=== PATIENT | male | born 1990 | race Caucasian/White ===

== ENCOUNTER 2016-11-07 23:30 | Emergency (ER) | payer MEDICAID ==
[2016-11-07 23:44] VITALS: BP 139/95; BMI 26.3
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
== END 2016-11-08 02:30 | disposition left against medical advice (07) ==
LOC: ER 23:30
DX: S81.801A Unspecified open wound, right lower leg, initial encounter (principal); S81.802A Unspecified open wound, left lower leg, initial encounter; W34.00XA Accidental discharge from unspecified firearms or gun, initial encounter; Y92.9 Unspecified place or not applicable
CPT/HCPCS: 73590; 99283

== ENCOUNTER 2017-01-02 16:49 | Emergency (ER) | payer OTHER, MEDICAID ==
[2017-01-02 16:54] VITALS: BP 108/64; BMI 26.3
[2017-01-02] MEDS ORDERED: TORADOL 60 MG VIAL IM ONE (17:29)
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
[2017-01-02] MEDS ORDERED: TORADOL 60 MG VIAL ONE (17:35)
[2017-01-02 17:48] LABS: BASOPHILS # (AUTO) 0.1 X10^3/uL (0.0-0.1); BASOPHILS % (AUTO) 0.9 % (0.2-1.0); EOSINOPHILS # (AUTO) 0.5 x10^3/uL (0.0-0.2); EOSINOPHILS % (AUTO) 6.2 % (0.9-2.9); HEMATOCRIT 42.1 % (42.0-54.0); HEMOGLOBIN 14.7 g/dL (13.5-18.0); LYMPHOCYTES # (AUTO) 1.8 X10^3/uL (1.3-2.9); LYMPHOCYTES % (AUTO) 21.4 % (21.0-51.0); MEAN CORPUSCULAR HEMOGLOBIN 31.3 pg (27.0-34.0); MEAN CORPUSCULAR HGB CONC 34.9 g/dL (33.0-35.0); MEAN CORPUSCULAR VOLUME 89.9 fL (80.0-100.0); MEAN PLATELET VOLUME 9.3 fL (7.4-11.0); MONOCYTES # (AUTO) 0.8 x10^3/uL (0.3-0.8); MONOCYTES % (AUTO) 10.1 % (0.0-13.0); NEUTROPHILS # (AUTO) 5.2 x10^3/uL (2.2-4.8); NEUTROPHILS % (AUTO) 61.4 % (42.0-75.0); PLATELET COUNT 199 X10^3/uL (150.0-450.0); RED BLOOD COUNT 4.68 X10^6/uL (4.7-6.0); RED CELL DISTRIBUTION WIDTH 14.1 % (11.6-16.5); WHITE BLOOD COUNT 8.4 X10^3/uL (3.6-10.0)
[2017-01-02 18:09] LABS: ALANINE AMINOTRANSFERASE 32 Units/L (12-78); ALBUMIN 3.3 g/dL (3.4-5.0); ALKALINE PHOSPHATASE 72 Units/L (46-116); BLOOD UREA NITROGEN 13 mg/dL (7-18); CALCIUM 8.5 mg/dL (8.5-10.1); CARBON DIOXIDE 32.4 mmol/L (21-32); CHLORIDE 105 mmol/L (98-107); COR CA(FOR HYPOALB) 9.1 mg/dL (8.5-10.1); CREATINE KINASE MB < 1.0 ng/mL (0-4.0); CREATININE 1.16 mg/dL (0.70-1.30); GLUCOSE 88 mg/dL (65-99); SODIUM 141 mmol/L (136-145); TOTAL PROTEIN 7.1 g/dL (6.4-8.2); eGFR BLACK RACES > 60 (>60); eGFR NON BLACK RACES > 60 (>60)
[2017-01-02 18:11] LABS: ASPARTATE AMINO TRANSFERASE 19 Units/L (15-37)
--- NOTE | 2017-01-02 20:32 | RAD ---
AP Chest Indication: Chest wall pain Comparison: None available Findings: The trachea is midline. The cardiac silhouette is borderline enlarged. The lungs are clear without focal infiltrate or effusion. The bony thorax is unremarkable. IMPRESSION: 1. Borderline cardiomegaly without acute cardiopulmonary abnormality. Reported By:
== END 2017-01-02 18:23 | disposition left against medical advice (07) ==
LOC: ER 17:05
DX: R07.89 Other chest pain (principal)
CPT/HCPCS: 36415; 71010; 80053; 82553; 85025; 96372; 99282; J1885

== ENCOUNTER 2017-07-13 13:07 | Emergency (ER) | payer OTHER, MEDICAID ==
[2017-07-13 13:13] VITALS: BP 139/84; BMI 29.2
--- NOTE | 2017-07-13 13:35 | DR.GENAD ---
HPI - PCP Primary Care Physician: LUIS - Complaint/Symptoms Chief Complaint Doctors Comments: Patient states that his lower lip swells when he eats strawberries. He works at a [employer] and [employer]. When he eats strawberries sometimes his lower lip will swell. He denies wheezing of shortness of breath during this time. He also admits to having a cough, nausea and vomiting. He denies fever. Chief Complaint:: FLU LIKE SYMPTOMS. C/O BOTTOM LIP SWELLING WHEN EATING CERTAIN FOOD - Source History Provided: Patient - Mode of Arrival Mode of Arrival: Ambulatory - Timing Onset of Chief Complaint: 07/07/17 PMH - PMH Past Medical History: Yes Past Medical History: Hypertension Past Surgical History: No - Family History History of Family Medical Conditions: Yes Family Medical History: Cancer, Heart Failure - Social History Does patient currently use any type of tobacco product: Yes Have you used tobacco products in the last 12 months: Yes Type of Tobacco Use: Cigarettes How many years tobacco product used: 4 Does any household member use tobacco: Yes Alcohol Use: None Do you use any recreational Drugs:: No Lives With: Family Lives Where: Home - infectious screening In the last 2 months have you had wt loss of >10#?: NO Have you had fever, night sweats or hemotysis?: No Have you traveled outside the country in the last 6 months?: No Isolation: Standard ROS - Review of Systems Eyes: No Symptoms Reported ENTM: No Symptoms Reported Respiratoy: No Symptoms Reported Cardiovascular: No Symptoms Reported Gastrointestinal/Abdominal: No Symptoms Reported Genitourinary: No Symptoms Reported Neurological: No Symptoms Reported Musculoskeletal: No Symptoms Reported Integumentary: No Symptoms Reported Hematologic/Lymphatic: No Symptoms Reported Endocrine: No Symptoms Reported Psychiatric: No Symptoms Reported All Other Systems: Reviewed and Negative PE - Vital Signs Vitals: Temperature 98.9 F Pulse Rate 100 Respiratory Rate 22 Blood Pressure 139/84 O2 Sat by Pulse Oximetry 100 - General Limitations: No Limitations General Appearance: Alert, In No Apparent Distress - Head Head Exam: Normal Inspection, Atraumatic - Eyes Eye exam: Normal Appearance, PERRL, EOMI - ENT ENT Exam: Normal Exam External Ear Exam: Normal External Inspection TM/Canal Exam: Bilateral Normal Nose Exam: Normal Nose Exam Mouth Exam: Normal Inspection Throat Exam: Normal Inspection - Neck Neck Exam: Normal Inspection, Full ROM - Chest Chest Inspection: Normal Inspection - Respiratory Respiratory Exam: Normal Lung Sounds Bilat Respiratory Exam: Bilateral Clear to Auscultation - Cardiovascular Cardiovascular Exam: Regular Rate, Normal Rhythm - Abdominal Exam Abdominal Exam: Normal Inspection, Normal Bowel Sounds Abdominal Tenderness: negative: RUQ, RLQ, LUQ, LLQ, Epigastrium, Suprapubic, Diffuse, Mild, Moderate, Severe, Other - Extremities Extremities Exam: Normal Inspection, Full ROM - Back Back Exam: Normal Inspection - Neurologic Neurological Exam: Alert, Oriented X3, CN II-XII Intact - Psychiatric Psychiatric Exam: Normal Affect - Skin Skin Exam: Warm, Dry, Intact Course - Education/Counseling Education/Counseling: Education Educated On: Treatment, Diagnosis - Diagnosis Discharge Problem: possible strawberry allergy URI (upper respiratory infection) Qualifiers: URI type: unspecified viral URI Qualified Code(s): J06.9 - Acute upper respiratory infection, unspecified - Discharge Plan Condition: Stable - Follow ups/Referrals Follow ups/Referrals: Faye Mcgrath [Primary Care Provider] - 3 days - Instructions
== END 2017-07-13 13:50 | disposition home or self-care (01) ==
LOC: ER 13:18
DX: J06.9 Acute upper respiratory infection, unspecified (principal)
CPT/HCPCS: 99281; 99282

== ENCOUNTER 2022-04-15 16:17 | Inpatient (IN) ==
[2022-04-15] MEDS ORDERED: ZOFRAN INJ 4 MG VIAL ONE (16:21)
[2022-04-15] MEDS ORDERED: NS 1,000 ML IV 1,000 ML IV ONE (16:25)
--- NOTE | 2022-04-15 16:25 | DR.GENAD ---
HPI Time Seen Time Seen by Provider: 04/15/22 16:23 Complaint/Symptoms Chief Complaint Doctors Comments: 31 y/o male brought in by EMS. Family found the pt unresponsive. Has a h/o drug abuse. They administered nasal narcan, no effect. EMS was called, they gave IV narcan, 4 mg. + became arousable. Pt told them he had a recent break-up, injected two "eight balls" of meth, trying to kill himself. Pt currently somnolent, but arousable. + nauseous. No vomiting yet. Nurses notes reviewed Nurses Notes Review: Yes Source History Provided: Patient and EMS Mode of Arrival Mode of Arrival: EMS PMH PMH Past Medical History: Anxiety, Depression and Hypertension Past Surgical History: No Surgical History: No History Family History Family Medical History: Cancer Social History Do you use any recreational Drugs:: Yes (METH) ROS Review of Systems Unable to Obtain Due To: Altered mental status PE Vital Signs Vitals: Temperature 98.8 F Pulse Rate 63 Respiratory Rate 24 Blood Pressure [Standing] 112/74 Blood Pressure [Sitting] 113/72 Blood Pressure [Lying] 112/64 Blood Pressure 125/82 O2 Sat by Pulse Oximetry 100 General General Appearance: In No Apparent Distress and Other (somnolent, but arousable.) Eyes Eye exam: PERRL and EOMI Neck Neck Exam: Normal Inspection and Full ROM Respiratory Respiratory Exam: Normal Lung Sounds Bilat; negative Accessory Muscle Use or Respiratory Distress Cardiovascular Cardiovascular Exam: Regular Rate, Normal Rhythm and Normal Heart Sounds Abdominal Exam Abdominal Exam: Soft; negative Tenderness Extremities Extremities Exam: Normal Inspection and Full ROM; negative Edema Neurologic Neurological Exam: CN II-XII Intact; negative Motor Sensory Deficit Skin Skin Exam: Warm and Dry COURSE Treatment Treatment: 31 y/o male, despondent after break-up with GF 2 weeks ago. Was found today by family , in the mix. They gave intranasal narcan, no effect. EMS gave IV narcan, with good results. Pt admits to trying to kill himself with IV drugs. W/u initiated. Pt given additional IV narcan, 2 mgs, in the ER, as well as IV fluids/IV [id number] - labs acceptable, has not given a urine sample yet. Pt placed on a 1013 for psychiatric placement. Pt will need overnight stabilization prior to placement on the 1013. Discussed with Dr Ku, television agent for admission. ROR Labs Reviewed Laboratory Results Reviewed?: Yes Result Diagrams: 04/15/22 16:35 04/15/22 16:35 Laboratory: WBC 7.2 X10^3/uL (3.6-10.0) 04/15/22 16:35 RBC 4.68 X10^6/uL (4.7-6.0) L 04/15/22 16:35 Hgb 14.1 g/dL (13.5-18.0) 04/15/22 16:35 Hct 41.9 % (42.0-54.0) L 04/15/22 16:35 MCV 89.5 fL (80.0-100.0) 04/15/22 16:35 MCH 30.2 pg (27.0-34.0) 04/15/22 16:35 MCHC 33.7 g/dL (33.0-35.0) 04/15/22 16:35 RDW 14.1 % (11.6-16.5) 04/15/22 16:35 Plt Count 196 X10^3/uL (150.0-450.0) 04/15/22 16:35 MPV 9.4 fL (7.4-11.0) 04/15/22 16:35 Neut % (Auto) 63.6 % (42.0-75.0) 04/15/22 16:35 Lymph % (Auto) 22.1 % (21.0-51.0) 04/15/22 16:35 [place] % (Auto) 9.6 % (0.0-13.0) 04/15/22 16:35 Eos % (Auto) 4.0 % (0.9-2.9) H 04/15/22 16:35 Baso % (Auto) 0.7 % (0.2-1.0) 04/15/22 16:35 Neut # (Auto) 4.6 x10^3/uL (2.2-4.8) 04/15/22 16:35 Lymph # (Auto) 1.6 X10^3/uL (1.3-2.9) 04/15/22 16:35 [place] # (Auto) 0.7 x10^3/uL (0.3-0.8) 04/15/22 16:35 Eos # (Auto) 0.3 x10^3/uL (0.0-0.2) H 04/15/22 16:35 Baso # (Auto) 0.0 X10^3/uL (0.0-0.1) 04/15/22 16:35 Absolute Nucleated RBC 0.0 /100WBC 04/15/22 16:35 Sodium 142 mmol/L (136-145) 04/15/22 16:35 Corrected Sodium TNP 04/15/22 16:35 Potassium 3.7 mmol/L (3.5-5.1) 04/15/22 16:35 Chloride 105 mmol/L (98-107) 04/15/22 16:35 Carbon Dioxide 32.7 mmol/L (21-32) H 04/15/22 16:35 BUN 12 mg/dL (7-18) 04/15/22 16:35 Creatinine 1.32 mg/dL (0.70-1.30) H 04/15/22 16:35 Est GFR (MDRD) Af Amer > 60 (>60) 04/15/22 16:35 Est GFR (MDRD) Non-Af > 60 (>60) 04/15/22 16:35 Glucose 98 mg/dL (65-99) 04/15/22 16:35 Calcium 8.2 mg/dL (8.5-10.1) L 04/15/22 16:35 Corrected Calcium TNP 04/15/22 16:35 Total Bilirubin 0.50 mg/dL (0.2-1.0) 04/15/22 16:35 AST 16 Units/L (15-37) 04/15/22 16:35 ALT 18 Units/L (12-78) 04/15/22 16:35 Alkaline Phosphatase 74 Units/L (46-116) 04/15/22 16:35 Troponin I High Sens 4.9 ng/L (4.0-60.0) 04/15/22 16:35 Total Protein 7.2 g/dL (6.4-8.2) 04/15/22 16:35 Albumin 3.7 g/dL (3.4-5.0) 04/15/22 16:35 Globulin 3.5 g/dL (2.5-4.5) 04/15/22 16:35 Albumin/Globulin Ratio 1.1 Ratio (1.1-2.1) 04/15/22 16:35 Lipase 97 Units/L (73-393) 04/15/22 16:35 EKG Rate: 63 Supai: Normal Rhythm: NSR Block: None ST: Normal Opioid Opioid Risk Tool Age (Teddy box if 16-45): Yes History of Preadolescent Sexual Abuse: No Total: 1 Total Score Risk Category: Low Risk Copyright: Rick MOCK predicting aberrant behaviors Discharge Plan Diagnosis Discharge Problem: Intentional drug overdose, Suicide attempt Discharge Plan Patient Disposition: ADMITTED INPATIENT Condition: Stable
[2022-04-15] MEDS ORDERED: NARCAN INJ IVP ONE (16:26)
[2022-04-15] MEDS ORDERED: NS 1,000 ML IV 1,000 ML ONE (16:28)
[2022-04-15] MEDS ORDERED: NARCAN INJ ONE (16:28)
[2022-04-15] MEDS ORDERED: ZOFRAN INJ 4 MG VIAL IVP ONE (16:33)
--- NOTE | 2022-04-15 16:38 | EKG ---
Test Reason : OD Blood Pressure : */* mmHG Vent. Rate : 63 BPM Atrial Rate : 63 BPM P-R Int : 140 ms QRS Dur : 84 ms QT Int : 406 ms P-R-T Axes : 56 39 41 degrees QTc Int : 415 ms Normal sinus rhythm Normal ECG No previous ECGs available Confirmed by Guillermo Bishop ([id number]) on 04/20/2022 5:52:03 PM Referred By: Confirmed By: Guillermo Bishop
[2022-04-15 16:44] LABS: BASOPHILS % (AUTO) 0.7 % (0.2-1.0); EOSINOPHILS # (AUTO) 0.3 x10^3/uL (0.0-0.2); HEMATOCRIT 41.9 % (42.0-54.0); HEMOGLOBIN 14.1 g/dL (13.5-18.0); LYMPHOCYTES # (AUTO) 1.6 X10^3/uL (1.3-2.9); LYMPHOCYTES % (AUTO) 22.1 % (21.0-51.0); MEAN CORPUSCULAR HEMOGLOBIN 30.2 pg (27.0-34.0); MEAN CORPUSCULAR HGB CONC 33.7 g/dL (33.0-35.0); MEAN CORPUSCULAR VOLUME 89.5 fL (80.0-100.0); MEAN PLATELET VOLUME 9.4 fL (7.4-11.0); MONOCYTES # (AUTO) 0.7 x10^3/uL (0.3-0.8); MONOCYTES % (AUTO) 9.6 % (0.0-13.0); NEUTROPHILS # (AUTO) 4.6 x10^3/uL (2.2-4.8); NEUTROPHILS % (AUTO) 63.6 % (42.0-75.0); RED BLOOD COUNT 4.68 X10^6/uL (4.7-6.0); RED CELL DISTRIBUTION WIDTH 14.1 % (11.6-16.5); WHITE BLOOD COUNT 7.2 X10^3/uL (3.6-10.0)
[2022-04-15 16:55] LABS: ALANINE AMINOTRANSFERASE 18 Units/L (12-78); ALBUMIN 3.7 g/dL (3.4-5.0); ALKALINE PHOSPHATASE 74 Units/L (46-116); ASPARTATE AMINO TRANSFERASE 16 Units/L (15-37); BLOOD UREA NITROGEN 12 mg/dL (7-18); CALCIUM 8.2 mg/dL (8.5-10.1); CARBON DIOXIDE 32.7 mmol/L (21-32); CHLORIDE 105 mmol/L (98-107); CREATININE 1.32 mg/dL (0.70-1.30); LIPASE 97 Units/L (73-393); SODIUM 142 mmol/L (136-145); TOTAL PROTEIN 7.2 g/dL (6.4-8.2); eGFR NON BLACK RACES > 60 (>60)
[2022-04-15] MEDS ORDERED: D5 1/2 NS 1,000 ML 1,000 ML IV ONE (16:57)
[2022-04-15] MEDS: D5 1/2 NS 1,000 ML 1,000 ML IV SCH (17:04)
--- NOTE | 2022-04-15 17:47 | RAD ---
HISTORY:Overdose, unresponsiveStudy: Single view chestComparison:08/11/2020Findings:No infiltrate, effusion, or pneumothorax identified .Cardiac and mediastinal contours are within normal limits .The soft tissues are intact .IMPRESSION:1.No acute cardiopulmonary abnormality.Electronically signed by: SANGEETA CONNOLLY (Apr 15, 2022 17:45:48)
[2022-04-15 22:18] LABS: BILIRUBIN,URINE NEGATIVE (NEGATIVE); BLOOD/HEMOGLOBIN,URINE NEGATIVE (NEGATIVE); GLUCOSE, URINE NEGATIVE (NEGATIVE); KETONES,URINE NEGATIVE (NEGATIVE); LEUKOCYTE ESTERASE ,URINE 1+ (NEGATIVE); NITRITES,URINE NEGATIVE (NEGATIVE); PROTEIN,URINE 2+ (NEGATIVE); UROBILINOGEN,URINE NORMAL (NORMAL)
[2022-04-15 22:20] LABS: APPEARANCE,URINE HAZY (CLEAR); COLOR,URINE YELLOW (YELLOW)
[2022-04-15 22:28] LABS: RBC,URINE 0-2 /HPF (0-3); SQUAMOUS EPITHELIAL CELL,UR FEW /HPF (NEGATIVE)
[2022-04-15 22:29] LABS: BACTERIA,URINE TRACE /HPF (NEGATIVE); HYALINE CASTS, URINE FEW /LPF (NEGATIVE)
[2022-04-16] MEDS: D5 1/2 NS 1,000 ML 1,000 ML IV SCH ×3 (01:01→18:19)
[2022-04-16 05:14] LABS: MEAN CORPUSCULAR HGB CONC 33.9 g/dL (33.0-35.0)
[2022-04-16 05:20] LABS: BASOPHILS # (AUTO) 0.1 X10^3/uL (0.0-0.1); BASOPHILS % (AUTO) 0.6 % (0.2-1.0); EOSINOPHILS # (AUTO) 0.4 x10^3/uL (0.0-0.2); EOSINOPHILS % (AUTO) 4.1 % (0.9-2.9); HEMOGLOBIN 14.2 g/dL (13.5-18.0); LYMPHOCYTES # (AUTO) 1.8 X10^3/uL (1.3-2.9); LYMPHOCYTES % (AUTO) 18.2 % (21.0-51.0); MEAN CORPUSCULAR HEMOGLOBIN 30.3 pg (27.0-34.0); MEAN CORPUSCULAR VOLUME 89.5 fL (80.0-100.0); MEAN PLATELET VOLUME 10.3 fL (7.4-11.0); MONOCYTES # (AUTO) 0.7 x10^3/uL (0.3-0.8); MONOCYTES % (AUTO) 6.9 % (0.0-13.0); NEUTROPHILS # (AUTO) 6.9 x10^3/uL (2.2-4.8); NEUTROPHILS % (AUTO) 70.2 % (42.0-75.0); RED BLOOD COUNT 4.69 X10^6/uL (4.7-6.0); RED CELL DISTRIBUTION WIDTH 14.3 % (11.6-16.5); WHITE BLOOD COUNT 9.9 X10^3/uL (3.6-10.0)
[2022-04-16 05:27] LABS: ALANINE AMINOTRANSFERASE 14 Units/L (12-78); ALBUMIN 3.1 g/dL (3.4-5.0); ALKALINE PHOSPHATASE 68 Units/L (46-116); ASPARTATE AMINO TRANSFERASE 14 Units/L (15-37); BLOOD UREA NITROGEN 11 mg/dL (7-18); CALCIUM 7.6 mg/dL (8.5-10.1); CARBON DIOXIDE 31.4 mmol/L (21-32); CHLORIDE 103 mmol/L (98-107); COR CA(FOR HYPOALB) 8.3 mg/dL (8.5-10.1); CREATININE 1.04 mg/dL (0.70-1.30); SODIUM 141 mmol/L (136-145); TOTAL PROTEIN 6.4 g/dL (6.4-8.2); eGFR NON BLACK RACES > 60 (>60)
[2022-04-16] MEDS ORDERED: KLOR-CON PO PRN (05:46)
[2022-04-16] MEDS ORDERED: K-RIDER 10 MEQ/NS 100 ML 10 MEQ/100 ML BAG IV PRN (05:46)
[2022-04-16] MEDS ORDERED: POTASSIUM CHL 60 MEQ/NS 0.45% 500 ML IV PRN (05:46)
[2022-04-16] MEDS ORDERED: MAGNESIUM SULFATE 1 GRAM/100 mL PREMIX 1 G/100 ML BAG IV PRN (05:46)
[2022-04-16] MEDS ORDERED: MICRO K EXTEN CAP 10 MEQ PO PRN (05:46)
[2022-04-16] MEDS ORDERED: K-DUR TAB 20 MEQ PO PRN (05:46)
[2022-04-16] MEDS ORDERED: POTASSIUM CHLORIDE LIQ 20 MEQ UDC PO PRN (05:46)
[2022-04-16] MEDS ORDERED: POTASSIUM CHL 40 MEQ/NS 0.45% 500 ML IV PRN (05:46)
--- NOTE | 2022-04-16 08:14 | DR.H&P ---
H&P History & Physical for Day of: H&P Date: 04/16/22 Chief Complaint Chief Complaint: Intentional drug overdose Allergies Allergies Allergy/AdvReac Type Severity Reaction Status Date / Time cefaclor Allergy Verified 03/16/22 13:42 History of Present Illness History of Present Illness: This is a 31-year-old white male who was desponded over a break-up with his girlfriend 2 weeks ago. He got high yesterday on methamphetamine and reported he wanted to end it all. He took to 8 balls of methamphetamine IV and was found in the mix later by his family members who called EMS. Family members gave him intranasal Narcan with no response and after EMS got there they gave him IV Narcan and he responded to that. He was brought to the [facility] department afterwards and given more Narcan which she responded to that as well. ER doctor did a 1013 only and we are waiting to hear from [facility] in [place], [place] later today about transferring him there for inpatient care. In the meantime this morning he is alert and awake and is ready to eat breakfast. Reports he wants to go home but we told him he cannot do that that he has to go straight [facility] or if they cannot take him there to another facility. He is currently medically stable to be transferred when we find a place for him to be transferred to. His potassium is slightly low this morning and we will replace that this morning. At this time he reports that he does not want hurt himself nor kill her self. Past Medical History Past Medical History: Anxiety, Depression and Hypertension Past Surgical History Surgical History: No History Family History Family Medical History: Cancer Social History Does patient currently use any type of tobacco product: Yes Have you used tobacco products in the last 12 months: Yes Type of Tobacco Use: Cigarettes Does any household member use tobacco: Yes Alcohol Use: None Drug Use: Methamphetamine Medications Home Medications: cefaclor Allergy (Verified 03/16/22 13:42) Labs Result Diagrams: 04/16/22 04:05 04/16/22 04:05 Labs: Laboratory WBC 9.9 X10^3/uL (3.6-10.0) 04/16/22 04:05 RBC 4.69 X10^6/uL (4.7-6.0) L 04/16/22 04:05 Hgb 14.2 g/dL (13.5-18.0) 04/16/22 04:05 Hct 42.0 % (42.0-54.0) 04/16/22 04:05 MCV 89.5 fL (80.0-100.0) 04/16/22 04:05 MCH 30.3 pg (27.0-34.0) 04/16/22 04:05 MCHC 33.9 g/dL (33.0-35.0) 04/16/22 04:05 RDW 14.3 % (11.6-16.5) 04/16/22 04:05 Plt Count 172 X10^3/uL (150.0-450.0) 04/16/22 04:05 MPV 10.3 fL (7.4-11.0) 04/16/22 04:05 Neut % (Auto) 70.2 % (42.0-75.0) 04/16/22 04:05 Lymph % (Auto) 18.2 % (21.0-51.0) L 04/16/22 04:05 [place] % (Auto) 6.9 % (0.0-13.0) 04/16/22 04:05 Eos % (Auto) 4.1 % (0.9-2.9) H 04/16/22 04:05 Baso % (Auto) 0.6 % (0.2-1.0) 04/16/22 04:05 Neut # (Auto) 6.9 x10^3/uL (2.2-4.8) H 04/16/22 04:05 Lymph # (Auto) 1.8 X10^3/uL (1.3-2.9) 04/16/22 04:05 [place] # (Auto) 0.7 x10^3/uL (0.3-0.8) 04/16/22 04:05 Eos # (Auto) 0.4 x10^3/uL (0.0-0.2) H 04/16/22 04:05 Baso # (Auto) 0.1 X10^3/uL (0.0-0.1) 04/16/22 04:05 Absolute Nucleated RBC 0.0 /100WBC 04/16/22 04:05 Sodium 141 mmol/L (136-145) 04/16/22 04:05 Corrected Sodium TNP 04/16/22 04:05 Potassium 3.3 mmol/L (3.5-5.1) L 04/16/22 04:05 Chloride 103 mmol/L (98-107) 04/16/22 04:05 Carbon Dioxide 31.4 mmol/L (21-32) 04/16/22 04:05 BUN 11 mg/dL (7-18) 04/16/22 04:05 Creatinine 1.04 mg/dL (0.70-1.30) 04/16/22 04:05 Est GFR (MDRD) Af Amer > 60 (>60) 04/16/22 04:05 Est GFR (MDRD) Non-Af > 60 (>60) 04/16/22 04:05 Glucose 103 mg/dL (65-99) H 04/16/22 04:05 Calcium 7.6 mg/dL (8.5-10.1) L 04/16/22 04:05 Corrected Calcium 8.3 mg/dL (8.5-10.1) L 04/16/22 04:05 Magnesium 2.0 mg/dL (2.0-2.9) 04/16/22 04:05 Total Bilirubin 0.50 mg/dL (0.2-1.0) 04/16/22 04:05 AST 14 Units/L (15-37) L 04/16/22 04:05 ALT 14 Units/L (12-78) 04/16/22 04:05 Alkaline Phosphatase 68 Units/L (46-116) 04/16/22 04:05 Troponin I High Sens 4.9 ng/L (4.0-60.0) 04/15/22 16:35 Total Protein 6.4 g/dL (6.4-8.2) 04/16/22 04:05 Albumin 3.1 g/dL (3.4-5.0) L 04/16/22 04:05 Globulin 3.3 g/dL (2.5-4.5) 04/16/22 04:05 Albumin/Globulin Ratio 0.9 Ratio (1.1-2.1) L 04/16/22 04:05 Lipase 97 Units/L (73-393) 04/15/22 16:35 Specimen Type Clean catch urine 04/15/22 22:00 Urine Color Yellow (YELLOW) 04/15/22 22:00 Urine Appearance Hazy (CLEAR) 04/15/22 22:00 Urine pH 6.0 (5.0 - 8.0) 04/15/22 22:00 Ur Specific [place] 1.020 (1.000-1.030) 04/15/22 22:00 Urine Protein 2+ (NEGATIVE) 04/15/22 22:00 Urine Glucose (UA) Negative (NEGATIVE) 04/15/22 22:00 Urine Ketones Negative (NEGATIVE) 04/15/22 22:00 Urine Blood Negative (NEGATIVE) 04/15/22 22:00 Urine Nitrite Negative (NEGATIVE) 04/15/22 22:00 Urine Bilirubin Negative (NEGATIVE) 04/15/22 22:00 Urine Urobilinogen Normal (NORMAL) 04/15/22 22:00 Ur Leukocyte Esterase 1+ (NEGATIVE) 04/15/22 22:00 Urine RBC 0-2 /HPF (0-3) 04/15/22 22:00 Urine WBC 0-2 /HPF (0-5) 04/15/22 22:00 Ur Squamous Epith Cells Few /HPF (NEGATIVE) 04/15/22 22:00 Amorphous Sediment 2+ /HPF (NEGATIVE) 04/15/22 22:00 Urine Bacteria Trace /HPF (NEGATIVE) 04/15/22 22:00 Hyaline Casts Few /LPF (NEGATIVE) 04/15/22 22:00 Urine Mucus Many /HPF (NEGATIVE) 04/15/22 22:00 Ur Culture Indicated? No/not indicated 04/15/22 22:00 Urine Opiates Screen Negative (NEG=<300) 04/15/22 22:00 Urine Methadone Screen Negative (NEG=<300) 04/15/22 22:00 Ur Barbiturates Screen Negative (NEG=<200) 04/15/22 22:00 Ur Phencyclidine Scrn Negative (NEG=<25) 04/15/22 22:00 Ur Amphetamines Screen Positive (NEG=<1000) 04/15/22 22:00 U Benzodiazepines Scrn Negative (NEG=<200) 04/15/22 22:00 Urine Cocaine Screen Negative (NEG=<300) 04/15/22 22:00 U Marijuana (THC) Screen Positive (NEG=<50) A 04/15/22 22:00 Review of Systems Constitutional: No Symptoms Reported Eyes: No Symptoms Reported ENT: No Symptoms Reported Respiratory: No Symptoms Reported Cardiovascular: No Symptoms Reported Gastrointestinal: No Symptoms Reported Genitourinary: No Symptoms Reported Musculoskeletal: No Symptoms Reported Skin: No Symptoms Reported Neurological: No Symptoms Reported Physical Exam Vital Signs: Temperature 97.3 F Pulse Rate 70 Respiratory Rate 19 Blood Pressure [Standing] 112/74 Blood Pressure [Sitting] 113/72 Blood Pressure [Lying] 112/64 Blood Pressure 108/77 O2 Sat by Pulse Oximetry 99 Oriented: Normal Eyes: Normal Ear: Normal Nose: Normal Throat: Normal Respiratory: Clear Throughout Palpation: Normal Tenderness: Normal Skin: Normal Musculoskeletal: Normal Psychiatric: Normal Mood Description: Calm Affect: Normal Speech Pattern: Clear and Appropriate Assessment/Plan (1) Intentional drug overdose: Status: Acute Plan: Monitor the patient patient in ICU until we can get an accepting inpatient treatment facility for drug abuse. (2) Suicide attempt: Status: Acute Plan: Transfer to mental health since we find accepting facility. (3) Hypokalemia: Status: Acute Plan: Potassium replacement protocol
[2022-04-16 18:36] VITALS: BMI 26.4
[2022-04-16 20:48] VITALS: BP 126/77
== END 2022-04-16 20:40 | disposition home or self-care (01) | DRG 918 ==
LOC: ER 16:17 → ICU 17:20
PROVIDERS: ADMIT Family Medicine; ATTEND Family Medicine
DX: E87.6 Hypokalemia; F12.90 Cannabis use, unspecified, uncomplicated; F41.8 Other specified anxiety disorders; Y92.9 Unspecified place or not applicable; F32.89 Other specified depressive episodes; I10 Essential (primary) hypertension; F15.90 Other stimulant use, unspecified, uncomplicated; Z20.822 Contact with and (suspected) exposure to COVID-19; T43.652A Poisoning by methamphetamines intentional self-harm, initial encounter; T14.91XA Suicide attempt, initial encounter